=== PATIENT | male | born 1950 | race Caucasian/White ===

== ENCOUNTER 2016-09-07 09:30 | Emergency (ER) | payer MEDICARE, OTHER ==
[~2016-09-07] VITALS: Wt 113.6 kg
[~2016-09-07 09:30] MED LIST: ASPI-664 PO; CLON-379 PO; ESCI20TA PO; IBUP-1542 PO; LORA1TAB PO; LOSA50TA6 PO; PRED20TA PO; VERA240T94 PO
[2016-09-07] MEDS ORDERED: KETOROLAC 60 MG INJ IM STA (11:03)
[2016-09-07] MEDS ORDERED: DIAZEPAM 5 MG/ML SYG IM ONE (11:30)
[2016-09-07] MEDS ORDERED: morphine 10 MG INJ IM ONE (11:30)
--- NOTE | 2016-09-07 11:46 | RADRPT ---
PROCEDURE: Lumbar spine series CLINICAL INDICATION: Back pain TECHNIQUE: Three views of the lumbar spine are available for review COMPARISON: None available FINDINGS: The normal lumbar lordosis is preserved. Alignment is intact. No acute fracture or dislocation is s een. Vertebral body heights are well maintained. There is mild disk height loss at L1-L4 with anter ior osteophytes at all levels. There is mild increased facet sclerosis consistent with facet arthro laith, particular lower lumbar spine. Paraspinous soft tissues are grossly unremarkable. IMPRESSION: 1. Mild degenerative changes of the lumbar spine. RPTAT: [facility] .Yunior Gómez MD, MD Date Time Electronically viewed and signed by .Yunior Gómez MD, on 09/07/2016 11:46 .B/
[2016-09-07 11:50] LABS: BASOPHILS % 0.5 % (0.0-2.0); EOSINOPHILS # 0.4 10^3/ul (0.0-0.5); EOSINOPHILS % 4.9 % (0.0-7.0); HEMATOCRIT 47.3 % (42.0-52.0); HEMOGLOBIN 16.2 g/dl (14.0-18.0); LYMPHOCYTES # 2.1 10^3/ul (0.8-2.9); MEAN CORPUSCULAR HEMOGLOBIN 31.5 pg (29.0-33.0); MEAN CORPUSCULAR HGB CONC 34.4 g/dl (32.0-37.0); MEAN CORPUSCULAR VOLUME 91.8 fl (82.0-101.0); MEAN PLATELET VOLUME 8.6 fl (7.4-10.4); MONOCYTE # 0.6 10^3/ul (0.3-0.9); NEUTROPHIL # 4.5 10^3/ul (1.6-7.5); NEUTROPHILS % 59.6 % (39.0-77.0); PLATELET COUNT 235 10^3/UL (140-440); RED BLOOD COUNT 5.15 10^6/ul (4.70-6.10); RED CELL DISTRIBUTION WIDTH 13.7 % (11.5-14.5); UNCORRECTED WBC 7.6 10^3/ul (4.8-10.8); WHITE BLOOD COUNT 7.6 10^3/ul (4.8-10.8)
[2016-09-07 11:53] LABS: CONDITION 1
[2016-09-07 11:56] LABS: CHLORIDE 102 mmol/L (97-110); POTASSIUM 4.1 mmol/L (3.5-5.1); SODIUM 143 mmol/L (135-144)
[2016-09-07 11:59] LABS: ANION GAP 18 (8-16); BLOOD UREA NITROGEN 15 mg/dl (7-20); CARBON DIOXIDE 27 mmol/L (21-31); CREATININE 0.73 mg/dl (0.61-1.24); GLUCOSE 112 mg/dl (70-220)
[2016-09-07 12:00] LABS: CALCIUM 9.2 mg/dl (8.4-10.2)
[2016-09-07 12:06] LABS: INR 0.99; PARTIAL THROMBOPLASTIN TIME 27.8 Sec (25.0-35.0); PROTIME 13.1 Sec (12.2-14.2)
--- NOTE | 2016-09-07 12:10 | RADRPT ---
PROCEDURE: CT Chest, abdomen, and pelvis without contrast. CLINICAL INDICATION: Back pain. TECHNIQUE: Volumetrically acquired images of the chest, abdomen, and pelvis without intravenous co ntrast were reformatted in the axial, sagittal, and coronal planes. Radiation dose: CTDIvol (mGy) = 20.0; total DLP mGy-cm = 1636. One or more of the following radiation dose techniques were used: -Automated exposure control. -Adjust of the mA and/or kV according to patient size. -Use of iterative reconstruction technque. COMPARISON: None. FINDINGS: There is ectasia of the ascending aorta, measuring up to 4.7 cm in oblique AP dimension. The calibe r of the aortic arch and descending aorta are within normal limits. Normal heart size without pericardial effusion. There are coronary artery and aortic valve leaflet calcifications. There are mild nonspecific interstitial changes identified in the bilateral lung padilla without foca l consolidation, pneumothorax, or pleural effusions. There is no suspicious pulmonary nodule or mas s. There are steatotic changes present within the enlarged liver, measuring up to 20.5 cm in craniocaud al length. Gallbladder, biliary system, pancreas, adrenal glands, and spleen are unremarkable. The re is a 10 mm staghorn calculus identified in the upper pole right renal collecting system without h ydronephrosis or obstructive uropathy. Ill-defined low density lesions in the bilateral kidneys are likely cysts. At least moderate sigmoid and descending colonic diverticulosis without diverticulitis. Appendix is within normal limits. No free fluid or fluid collection. No lymphadenopathy. No concerning bone lesions. IMPRESSION: Ectasia of the ascending aorta with mild atherosclerotic aortic calcifications. The thoracic aortic arch and descending thoracoabdominal aorta are normal in caliber. Jessie-centimeter staghorn calculus identified within the right kidney without hydronephrosis or obstr uctive uropathy. Moderate colonic diverticulosis, uncomplicated. Hepatic steatosis with hepatomegaly. RPTAT: EE .Rex Lim MD, MD Date Time Electronically viewed and signed by .Rex Lim MD, MD on 09/07/2016 12:13 .C/
[2016-09-07] MEDS ORDERED: LOSA100T7 PO (12:13)
[2016-09-07] MEDS ORDERED: ACET-141 PO (12:14)
[2016-09-07 12:15] LABS: TROPONIN-I < 0.012 ng/ml (0.00-0.12)
[2016-09-07 13:50] LABS: ADD UMIC YES; URINE BILIRUBIN (Dip) NEGATIVE (NEGATIVE); URINE BLOOD (Dip) TRACE (NEGATIVE); URINE COLOR LT. YELLOW (YELLOW); URINE GLUCOSE (Dip) NEGATIVE (NEGATIVE); URINE KETONES (Dip) NEGATIVE (NEGATIVE); URINE LEUKOCYTE ESTERASE (Dip) NEGATIVE (NEGATIVE); URINE NITRITE (Dip) NEGATIVE (NEGATIVE); URINE TOTAL PROTEIN (Dip) NEGATIVE (NEGATIVE); URINE UROBILINOGEN (Dip) 0.2 E.U./dL (0.1-1.0)
[2016-09-07 14:05] LABS: MUCUS,URINE MODERATE; SQUAMOUS EPITHELIAL CELL,UR FEW
[2016-09-07 14:25] VITALS: BP 167/97; PULSE 67; RESP 18; TEMP 97.8
[2016-09-07] MEDS ORDERED: NAPR-688 PO (14:29)
[2016-09-07] MEDS ORDERED: HYDR-905 PO (14:29)
[2016-09-07] MEDS ORDERED: AMLO-147 PO (14:29)
[2016-09-07] MEDS ORDERED: METH-70 PO (14:29)
--- NOTE | 2016-09-07 14:59 | ERD ---
ER Documentation Chief Complaint Date/Time DATE: 09/07/16 TIME: 14:49 Chief Complaint BACK PAIN HPI This 66-year-old male presents emergency room with right lower back pain. He has a history of abdominal aortic aneurysm. He also states that he was doing some heavy lifting including carrying a heavy duffel bag to the pain. He has hypertensive in triage and been taking his normal medicines only does have clonidine: The blood pressure still too high and he has not taken that. Denies chest pain shortness of breath lightheadedness. He has no nausea ROS All systems reviewed and are negative except as per history of present illness. Medications Home Meds Active Scripts Naproxen* (Naproxen*) 500 Mg Tablet, 500 MG PO BID, #20 TAB Prov:AURORANORM DO 09/07/16 Methocarbamol* (Robaxin*) 750 Mg Tablet, 750 MG PO Q6H Y for MUSCLE SPASMS, #20 TAB Prov:AURORANORM DO 09/07/16 Hydrocodone/Acetaminophen ([place]sn[place] 7.5-325 Tablet) 1 Each Tablet, 1 EACH PO Q6, # 20 TAB Prov:AURORANORM DO 09/07/16 Amlodipine Besylate* (Amlodipine Besylate*) 10 Mg Tablet, 10 MG PO DAILY, #30 TAB Prov:AURORANORM DO 09/07/16 Ibuprofen* (Motrin*) 600 Mg Tab, 600 MG PO Q8, #30 TAB Prov:DELONTE JORDAN DO 01/10/16 Prednisone* (Prednisone*) 20 Mg Tab, 40 MG PO DAILY for 4 Days, TAB Prov:DELONTE JORDAN DO 01/10/16 Reported Medications Acetaminophen* (Acetaminophen*) 500 MG Extra Strength Tablet, 500 MG PO Q4H Y for PAIN AND OR ELEVATED TEMP, TAB 09/07/16 Losartan Potassium* (Losartan Potassium*) 100 Mg Tablet, 100 MG PO DAILY, TAB 09/07/16 Escitalopram Oxalate* (Lexapro*) 20 Mg Tablet, 20 MG PO HS, #30 TAB 01/10/16 Lorazepam* (Lorazepam*) 1 Mg Tablet, 1 MG PO BID Y for ANXIETY, #30 TAB 01/10/16 Aspirin (Low Dose Aspirin) 81 Mg Tablet.dr, 81 MG PO DAILY, #30 TAB 01/10/16 Clonidine Hcl* (Clonidine Hcl*) 0.1 Mg Tab, 0.1 MG PO BID Y for ELEVATED BLOOD PRESSURE, TAB 01/10/16 Losartan Potassium* (Losartan Potassium*) 50 Mg Tablet, 50 MG PO BID, TAB 01/10/16 Verapamil Hcl* (Verapamil ER*) 240 Mg Tablet.er, 240 MG PO DAILY, TAB.SA 01/10/16 Allergies Allergies: Coded Allergies: iodine (Verified Allergy, Unknown, 09/07/16) penicillin V (Verified Allergy, Unknown, 09/07/16) Uncoded Allergies: BETA BLOCKERS (Allergy, Unknown, 01/10/16) PMhx/Soc Hx Neurological Disorder: No Hx Respiratory Disorders: No Hx Cardiac Disorders: Yes (HTN) Hx Psychiatric Problems: Yes (ANXIETY, DEPRESSION) Hx Miscellaneous Medical Probl: Yes (HX OF KIDNEY STONES) Hx Alcohol Use: No Hx Substance Use: No Hx Tobacco Use: No Smoking Status: Never smoker Physical Exam Vitals Vital Signs Date Time Temp Pulse Resp B/P Pulse Ox O2 Delivery O2 Flow Rate FiO2 09/07/16 14:25 97.8 67 18 167/97 100 Room Air 09/07/16 10:58 99.1 78 20 175/105 96 Room Air 09/07/16 09:42 99.1 84 20 196/97 96 Physical Exam Const: [] Mild distress, appears uncomfortable Head: Atraumatic Eyes: Normal Conjunctiva ENT: Normal External Ears, Nose and Mouth. Neck: Full range of motion..~ No meningismus. Resp: Clear to auscultation bilaterally Cardio: Regular rate and rhythm, no murmurs Abd: Soft, non tender, non distended. Normal bowel sounds Skin: No petechiae or rashes Back: No midline tenderness, right-sided paraspinal lumbar tenderness with significant spasm palpable. Ext: No cyanosis, or edema Neur: Awake and alert oriented 3, no focal deficits Psych: Normal Mood and Affect Result Diagram: 09/07/16 1131 09/07/16 1131 Results 24 hrs Laboratory Tests Test 09/07/16 11:31 09/07/16 13:38 Activated Partial Thromboplast Time 27.8Sec Anion Gap 18 Basophils # 0.010^3/ul Basophils % 0.5% Blood Urea Nitrogen 15mg/dl Calcium Level 9.2mg/dl Carbon Dioxide Level 27mmol/L Chloride Level 102mmol/L Creatinine 0.73mg/dl Eosinophils # 0.410^3/ul Eosinophils % 4.9% Glucose Level 112mg/dl Hematocrit 47.3% Hemoglobin 16.2g/dl INR International Normalized Ratio 0.99 Lymphocytes # 2.110^3/ul Lymphocytes % 27.0% Mean Corpuscular Hemoglobin 31.5pg Mean Corpuscular Hemoglobin Concent 34.4g/dl Mean Corpuscular Volume 91.8fl Mean Platelet Volume 8.6fl Monocytes # 0.610^3/ul Monocytes % 8.0% Neutrophils # 4.510^3/ul Neutrophils % 59.6% Nucleated Red Blood Cells # 0.010^3/ul Nucleated Red Blood Cells % 0.0/100WBC Platelet Count 04879^3/UL Potassium Level 4.1mmol/L Prothrombin Time 13.1Sec Prothrombin Time Ratio 1.0 Red Blood Count 5.1510^6/ul Red Cell Distribution Width 13.7% Sodium Level 143mmol/L Troponin I < 0.012ng/ml White Blood Count 7.610^3/ul Urine Bilirubin NEGATIVE Urine Clarity HAZY Urine Color LT. YELLOW Urine Glucose NEGATIVE% Urine Hemoglobin TRACE Urine Ketones NEGATIVE Urine Leukocyte Esterase NEGATIVE Urine Microscopic RBC 2-5/HPF Urine Microscopic WBC 0-2/HPF Urine Mucus MODERATE Urine Nitrite NEGATIVE Urine Specific [place] >=1.030 Urine Squamous Epithelial Cells FEW Urine Total Protein NEGATIVE Urine Urobilinogen 0.2 E.U./dL Urine pH 6.0 Current Medications Medications (Trade) Dose Ordered Sig/Leroy Route PRN Reason Start Time Stop Time Status Last Admin Dose Admin Diazepam (Valium) 10 mg ONCE ONCE IM 09/07/16 11:30 09/07/16 11:31 DC Ketorolac Tromethamine (Toradol) 60 mg ONCE STAT IM 09/07/16 11:03 09/07/16 11:05 DC Morphine Sulfate (morphine) 6 mg ONCE ONCE IM 09/07/16 11:30 09/07/16 11:31 DC Procedures/MDM Likely musculoskeletal right lower back muscle spasm secondary to strain from carrying heavy objects. Patient did come in with high blood pressure has a history of a aortic aneurysm and had back pain which is a constellation of symptoms concerning for possible change in his abdominal aortic aneurysm such as rupture extension or dissection. Patient is allergic contrast so a noncontrast CT was performed of his chest abdomen and pelvis which showed no change in his aneurysmal dilation. Patient is made comfortable by muscle relaxer , I am Valium, IM morphine as well as IM Toradol. Is feeling much better in the emergency room. Blood pressure was improved with pain control however he did have another pressure reading with a systolic just above 100. Patient is going to take one of his clonidine now [address] also showed a staghorn tach listed as an the right kidney which she arty new about. Urinalysis performed which is negative for any kind of infection. Discharging with Osn[place], Robaxin, naproxen. A Claire Rollinse with amlodipine for better blood pressure control instructions to take a log of his blood pressures to take his primary care doctor in the next 2 or 3 days. Return precautions were also given. EKG interpretation: Normal sinus rhythm rate of 64, left axis deviation, no ST- T wave changes concerning for acute ischemia, normal intervals, nonspecific T- wave abnormality Heart attack monitor interpretation: Normal sinus rhythm without arrhythmia CT abdomen and pelvis chest interpretation: Left renal staghorn calculus, no evidence of dissection on limited study secondary to lack of IV contrast, no change in aneurysmal dilation, no obstruction, no free air, no bony abnormalities, no pneumonia or widened mediastinum Departure Diagnosis: Primary Impression: Back muscle spasm Additional Impression: Uncontrolled hypertension Condition: Stable Patient Instructions: Back Spasm, No Trauma, Hypertension, Established, Out Of Control Additional Instructions: Call your primary care doctor TOMORROW for an appointment during the next 2-3 days.See the doctor sooner or return here if your condition worsens before your appointment time. NORM SIMON DO Sep 07, 2016 14:59
== END 2016-09-07 15:43 | disposition home or self-care (01) ==
LOC: FTE 09:30 → E/R 15:43
DX: M62.830 Muscle spasm of back (principal); I10 Essential (primary) hypertension; Z79.82 Long term (current) use of aspirin; Z86.79 Personal history of other diseases of the circulatory system
CPT/HCPCS: 71250; 72100; 74176; 80048; 81001; 84484; 85025; 85610; 85730; 93005; J1885; J2270; J3360; 36415; 81003